=== PATIENT | male | born 1945 | race Caucasian/White ===

== ENCOUNTER 2021-04-10 12:32 | Day surgery (SDC) | payer OTHER, SELFPAY ==
[2021-03-26 16:17] VITALS: BMI 23.1
--- NOTE | 2021-04-02 14:39 | NURSING ---
pt states he will get COVID test completed on 04/07/21 or 04/08/21 at facility other than [facility] and will fax results to PAT #2 by 1200 noon on 04/09/21. Fax number given [phone].
--- NOTE | 2021-04-02 14:47 | NURSING ---
pt instructed to notify Dr Herrera's office that pt has a cough and runny nose, and to clarify if need to stop aspirin and plavix.
--- NOTE | 2021-04-10 | LES_PTH ---
PATIENT: ADENIKE NAVA [place] [facility] [place][id number] AGE/SX: 75/M ROOM: RE04/10/[address]: Dr. Erik Herrera MD : 1945 BED: DIS: 04/10/2021 SPEC #: [id number] RECD: 04/10/21 14:52 STATUS: JUNE RADHA #: [id number] LADONNA: 04/10/21 00:[address]: Erik Herrera DEPT: SURGICAL PATHOLOGY RECD BY: Za Saleem ENTERED: 04/10/21 15:47 SP TYPE: Lesion OTHR DR: Dr. Abilio Hawk MD Tissues: A - Skin of face, NOS B - Skin of face, NOS C - Skin of face, NOS D - Skin of face, NOS Procedures: Frozen Section (charge) Surgery Specimen Level IV HEADER OPERATION: Excision lesion right holiness with frozen section PRE-OP DIAGNOSIS: 2.2 cm erythematous ulcerated lesion right holiness by hairline; 1.2 cm erythematous lesion left cheek by cheek/lower eyelid junction TISSUE SUBMITTED: A - Erythematous ulcerated lesion right holiness by hairline, FS, B - Erythematous lesion left cheek by cheek/lower eyelid junction, FS, C - Basal cell carcinoma right holiness by hairline, suture at 12 o?clock, D - 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 Ulcerated lesion right holiness by hairline, biopsy: Basal cell carcinoma. B. Erythematous lesion left cheek, shave biopsy: Squamous cell carcinoma in situ. SJ:fabiola 04/10/2021 MICROSCOPIC DIAGNOSIS A. Skin lesion of right holiness, biopsy: Nodular basal cell carcinoma, ulcerated. See comment. B. Skin lesion of left cheek, biopsy: Squamous cell carcinoma in situ. C. Skin lesion of right holiness re-excision: Actinic change and dorene elastosis. Cutaneous ulcer consistent with recent biopsy. Intradermal nevus. No evidence of carcinoma. D. Skin lesion of left cheek, re-excision: Cutaneous ulcer consistent with recent biopsy. Actinic change and focal solar elastosis. No evidence of malignancy. AM:fabiola 04/14/2021 COMMENT A. The lesion is incompletely excised. MICROSCOPIC DESCRIPTION Slides are reviewed. GROSS DESCRIPTION A - Received fresh for frozen section diagnosis labeled with the patient's name is a specimen designated ulcerated lesion right holiness by hairline. The specimen consists of a piece of skin measuring 3 x 1.2 x 0.5 cm. The specimen is inked, serially sectioned and submitted entirely for frozen section diagnosis in two cassettes. / : 04/10/21 B - Received fresh for frozen section diagnosis labeled with the patient's name is a specimen designated erythematous lesion left cheek. The specimen consists of a shave biopsy of pepper-white skin measuring 1.5 x 1 x 0.1 cm. The specimen is inked, serially sectioned and submitted entirely for frozen section diagnosis in one cassette. / : 04/10/21 C - Received in fixative is one container labeled with the patient's name and designated basal cell carcinoma right holiness by hairline. The specimen consists of a round piece of pepper-white skin measuring 3.2 x 3 cm and up to 0.5 cm in thickness. The skin surface shows an area of ulceration consistent with site of specimen A measuring 2.2 x 1.5 cm. The specimen is oriented by a suture at 12 o?clock. The specimen is inked as follows: 12 to 3 o?clock ? black, 3 to 6 o?clock ? blue, 6 to 9 o?clock ? green and 9 to 12 o?clock ? yellow. The specimen is serially sectioned and submitted entirely in three cassettes. / : 04/13/21 D - Received in fixative is one container labeled with the patient's name and designated squamous cell carcinoma in situ left cheek by cheek/lower eyelid. The specimen consists of a piece of pepper-white skin measuring 1.9 x 1.9 cm and 0.2 cm in thickness. The specimen is oriented by a suture at 12 o?clock. The specimen is inked as follows: 12 to 3 o?clock ? black, 3 to 6 o?clock ? blue, 6 to 9 o?clock ? green and 9 to 12 o?clock ? yellow. The specimen shows a focal area of ulceration measuring 1.2 x 1.2 cm. The specimen is serially sectioned and submitted entirely in two cassettes. / GARETT:fabiola 04/13/21 TC:0 CPT: 08827 x4, 76181 x2
--- NOTE | 2021-04-10 07:44 | PCM.HP.BLA ---
History and Physical Date of Admission: 04/10/21 HISTORY OF PRESENT ILLNESS 75 year old man presents for evaluation for TBSE.? He has concerns about an erythematous lesion on his left cheek by the cheek/lower eyelid junction.? There is also an erythematous lesion right gnosticist by hairline that intermittently bleeds.? He denies trauma.? He states he first noticed these lesions growing about 6 months ago.? He denies any recent infection.? He presents today for further evaluation and treatment. PAST MEDICAL HISTORY Cataracts, bilateral Diabetes Former smoker Hearing difficulty Heart disease Heart valve disorder High blood pressure High cholesterol History of pneumonia Neoplasm of skin of left cheek Neoplasm of skin of gnosticist region Prostate disorder Stroke PAST SURGICAL HISTORY Cardiac stent prostate surgery ALLERGIES No Known Allergies MEDICATIONS amlodipine aspirin atenolol clopidogrel glipizide lisinopril lovastatin metformin FAMILY HISTORY Daughter - Cancer Son - Epilepsy SOCIAL HISTORY Smoking Status:? Former smoker alcohol intake:? never substance use type:? does not use REVIEW OF SYSTEMS General - Denies fever, fatigue, and weight loss. Eyes - Has cataracts.? Denies glaucoma. ENT - Denies nasal congestion and sore throat. Endocrine - Denies excessive thirst and urination. ? Has cold intolerance. Skin - Denies skin cancer.? Has enlarging lesions left cheek by the cheek/lower eyelid junction and right gnosticist by hairline. Musculoskeletal - Denies joint pain, joint stiffness, weakness of muscles and joints, back pain, and arthritis. Neuro - Denies headaches. Cardiovascular - Denies chest pain, fatigue, and shortness of breath with exertion. Psych - Denies anxiety and depression. Respiratory - Denies chronic cough and shortness of breath.? Patient is a former smoker. Gastrointestinal - Denies nausea, vomiting, and constipation.? Has diarrhea. Hematologic - Denies abnormal bruising and bleeding. Genitourinary - Denies hematuria.? Has urinary frequency. PHYSICAL EXAMINATION General - Alert and Oriented. HEENT - PERRL. EOMI.? Throat is clear.? On the right gnosticist by hairline is an erythematous lesion.? Overlying tissue is friable.? Easily bleeds.? Has irregular borders.? Raised in configuration.? Lesion is nontender.? Some ulceration seen.? Measures 2.2 cm. On the left cheek by the cheek/lower eyelid junction is an erythematous lesion.? Some scabbing.? Has irregular borders.? Slightly raised in configuration.? No ulceration.? Lesion is nontender.? Measures 1.2 cm.? Neck - Supple and nontender.? No cervical adenopathy. Lungs - Clear to auscultation. Heart - Regular rate and rhythm. Abdomen - Soft and nondistended. Extremities - FROM. No axillary adenopathy.? Radial pulses are palpable. Neuro - CN II-XII grossly intact. Psych - Normal mood and affect. ASSESSMENT 1.? 2.2 cm erythematous ulcerated lesion right gnosticist by hairline,? clinically consistent with a skin carcinoma. 2.? 1.2 cm erythematous lesion left cheek by the cheek/lower eyelid junction, clinically consistent with a basal cell carcinoma. 3.? Former smoker. PLAN Patient has two lesions on his face (left cheek by the cheek/lower eyelid junction, and right gnosticist by hairline) that have increased in size over the last several months. They are clinically consistent with a skin carcinoma.? There is some ulcerated bleeding on the lesion right gnosticist by hairline. Recommend excision of these two lesions and send them to Pathology for analysis to rule out carcinoma.? If carcinoma is present or if there is an actinic pre-cancerous component, then further excision will be done with skin grafting or possible skin flap. Surgery will be done under general anesthesia on an outpatient basis. Patient was informed of the risks and complications of the procedure including alternatives to surgery.? These were discussed with the patient personally.? Patient voices understanding and wishes to proceed. Some of the risks and complications were included in a form from the [employer]. If the frozen section shows actinic pre-cancerous sun damage, the options are surgery or treatment with Aldara which is applied daily at night 5 days per week for 6 weeks.? In the mornings, wipe off the excess.? Patient decided he didn't want to used the cream and would much rather have an actinic pre-cancerous lesion excised in surgery. We discussed the current risks associated with COVID-19. While it is understood that there is a community spread of COVID-19, the risk of rosas COVID-19 while at [facility] ([facility]) is very low; however, the risk cannot be completely mitigated because of the community spread of the disease. We discussed in detail the risk of exposure to and/or potential harm posed by the COVID-19 virus with having a surgery/procedure at this time versus the risk of delaying the surgery/procedure. It is not possible to know either the risk of delaying the surgery or procedure or chance of getting an infection with perfect accuracy, but a joint decision was made to proceed at this time with the scheduled surgery/procedure as indicated on the consent form. Patient was notified that we will need to comply with any screening or testing WC wishes to perform or that surgery may be delayed for any positive results. Discussed with the patient that I was tested for COVID-19 on 05/29/20 which was negative and on 06/12/20 which was negative and on 06/26/20 which was negative and on 07/10/20 which was negative and on 07/24/20 which was negative and on 08/14/20 which was negative and on 09/04/20 which was negative and on 10/09/20 which was negative and on 10/30/20 which was negative and on 11/18/20 which was negative. ? My testing regimen at this time is to be COVID-19 tested every 2 weeks or so.? I received the COVID-19 vaccine (Moderna) on 11/26/20 and the second vaccine dose was received on 12/24/20.? When I was hospitalized on 01/26/21 I was tested for COVID-19 which was negative.? I was also? tested for COVID-19 on 02/10/21 which was negative and on 03/09/21 which was negative. Procedure Criteria Procedure Type:?Elective COVID Risk Discussion: The surgeon/proceduralist and patient have discussed in detail the risk of exposure to and/or potential harm posed by the COVID-19 virus with having a surgery/procedure at this time versus the risk of delaying the surgery/procedure.? It is not possible to know either the risk of delaying the surgery or procedure or chance of getting an infection with perfect accuracy, but a joint decision was made between the patient and the surgeon/proceduralist to proceed at this time with the scheduled surgery/procedure as indicated on the consent form. Addendum Addendum: Surgery Charges CPT - 63940
[2021-04-10] MEDS: Lactated Ringers 1,000 ML 100 ML IV (13:00)
[2021-04-10] MEDS: Lidocaine 1% /Epi 1:100 (20ml) 20 ML Vial (13:28)
[2021-04-10 13:32] VITALS: BP 197/55; PULSE 51; RESP 14; TEMP 36.4; O2SAT 100; BMI 21.4
[2021-04-10 13:40] LABS: Bedside Glucose 96 mg/dL (70-110)
[2021-04-10] MEDS: Mupirocin Ointment 22gm Tube 1 APPLIC (16:21)
[2021-04-10 16:40] VITALS: BP 143/48; BP 197/55; PULSE 51; RESP 16; TEMP 36.1; O2SAT 94
[2021-04-10 16:45] VITALS: BP 143/45; BP 197/55; PULSE 52; RESP 16; O2SAT 97
[2021-04-10 17:00] VITALS: BP 139/52; BP 197/55; PULSE 51; RESP 16; O2SAT 98
--- NOTE | 2021-04-10 17:06 | PCM.OPRPT ---
Report of Operation Date of Procedure: 04/10/21 Pre-Operative Diagnosis: 1. 2.2 cm erythematous ulcerated lesion right anabaptism by hairline, clinically consistent with a skin carcinoma. 2. 1.2 cm erythematous lesion left cheek by the cheek/alejo eyelid junction, clinically consistent with a basal cell carcinoma. 3. Former smoker. Post-Operative Diagnosis: 1. 2.2 cm erythematous ulcerated basal cell carcinoma right anabaptism by hairline. 2. 1.2 cm erythematous squamous cell carcinoma in situ left cheek by the cheek/alejo eyelid junction. 3. Former smoker. Surgery/Procedure Performed:: 1. Excision 2.2 cm erythematous ulcerated basal cell carcinoma right anabaptism by hairline with FTSG reconstruction from right flank (17.64 cm2). 2. Excision 1.2 cm erythematous squamous cell carcinoma in situ left cheek by the cheek/lower eyelid junction with rhomboid transposition skin flap reconstruction cheek (6 cm2) and FTSG reconstruction lower eyelid from right flank (3 cm2). Description of Surgical Findings:: Frozen section erythematous ulcerated basal cell carcinoma right anabaptism by hairline - basal cell carcinoma. Frozen section erythematous squamous cell carcinoma in situ left cheek by the cheek/lower eyelid junction. Size of skin graft right anabaptism by hairline - 4.2 x 4.2 cm. Size of skin graft left lower eyelid - 2 x 1.5 cm. Surgeon: Erik Herrera clinical resource director: Jaspreet Sandhu Type of Anesthesia: General Specimen's removed: 1. Erythematous ulcerated basal cell carcinoma right anabaptism by hairline to Pathology as a frozen section. 2. Erythematous squamous cell carcinoma in situ left cheek by the cheek/lower eyelid junction to Pathology as a frozen section. 3. Erythematous ulcerated basal cell carcinoma right anabaptism by hairline to Pathology. 4. Erythematous squamous cell carcinoma in situ left cheek by the cheek/lower eyelid junction to Pathology. Drains: None. Estimated Blood Loss (mL): 25. Description of Procedure: Patient was taken to OR in supine position and was placed under general anesthesia. The face and right flank areas were prepped and draped in the usual fashion. SCD's were placed for DVT prophylaxis. Perioperative antibiotics were given intravenously. Using xylocaine with epinephrine, the lesions right anabaptism by hairline and left cheek by the cheek/lower eyelid junction and donor area right flank were infiltrated. After waiting 5 minutes for the anesthetic to take effect, I proceeded with intradermal excision of these two lesions with a size 15 scalpel and sent them to Pathology as a frozen section for analysis to rule out carcinoma. Frozen section showed the right anabaptism by hairline lesion was a basal cell carcinoma and the left cheek by the cheek/lower eyelid junction lesion was a squamous cell carcinoma in situ. The right anabaptism by hairline basal cell carcinoma was excised with a 1 cm margin in all directions into the subcutaneous tissue. A suture was marked at the 12 oclock position for pathology orientation. The lesion was sent to Pathology for analysis to evaluate for carcinoma at the margins. The size of the defect to be skin grafted is 4.2 x 4.2 cm or 17.64 cm2. The left cheek by the cheek/lower eyelid junction squamous cell carcinoma in situ was excised with a 4 mm margin in all directions into the subcutaneous tissue. The superior aspect of the wound extended into the lower eyelid. Will try and close this defect with a rhomboid flap. If there is too much tension on the lower eyelid, then the superior aspect of the wound would be skin grafted. Hemostasis in both of these wounds obtained with electrocautery. Using a separate 10 scalpel, I excised the donor site ellipse in the right flank into the subcutaneous tissue. The subcutaneous tissue was removed from the undersurface of the dermis thus fashioning a full thickness skin graft. The skin graft was placed in saline. Hemostasis was obtained with electrocautery. The donor incision was closed in a layered fashion with 3-0 Monocryl interrupted sutures for the deep dermis and subcutaneous tissue. The skin was approximated with 3-0 V lock unidirectional barbed running subcuticular suture. This was followed by Histoacryl skin tissue adhesive. I then placed the skin graft to the right anabaptism by hairline wound and secured it to the skin edges with 5-0 Chromic simple interrupted sutures. 5-0 Chromic sutures were also used for central quilting stabilization. For the left cheek by the cheek/lower eyelid junction wound, I designed a rhomboid flap inferiorly. Incisions were made and the flap was elevated on a subcutaneous pedicle and transposed into the defect. When I placed a suture at the superior edge of the wound, there was too much tension on the lower eyelid. So the suture was removed. So the rhomboid flap will reconstruct the cheek portion of the wound and the FTSG will reconstruct the lower eyelid portion of the wound. Hemostasis was obtained with electrocautery. I transposed the rhomboid flap into the cheek portion of the defect and the incisions were closed in a layered fashion with 5-0 Monocryl interrupted sutures for the deep dermis and subcutaneous tissue. The skin was approximated with 6-0 Prolene simple interrupted sutures. A FTSG was placed on the superior wound and secured to the skin edges with 5-0 Chromic simple interrupted sutures. 5-0 Chromic sutures were also placed for central quilting stabilization. Antibiotic ointment was applied to both skin grafts followed by Xeroform gauze and cotton balls soaked in saline. It was secured to the skin with 4-0 Nylon tie over stent suture dressings. A Kerlix gauze was applied to the donor incision right flank. Patient tolerated the procedure well and was sent to PACU in satisfactory condition. Patient will be sent home on antibiotics and pain medication. He will keep his head elevated during the initial postoperative period. Patient will followup in a week for a wound check and for discussion of the pathology report and for removal of the skin graft dressings and for removal of the Prolene and Nylon sutures. Grafts/Implants Used: None. Complications None. Admit VTE Documentation VTE Present on Admission: No VTE Mechan Device Prophylaxis: SCD's VTE Pharm Prophylaxis ordered?: No Addendum Addendum: Surgery Charges CPT - 98970 ICD-10 - C44.319, Z87.891, D04.39 36979 C44.319, Z87.891, D04.39 43422 D04.39, Z87.891, C44.319 24930 D04.39, Z87.891, C44.319 75560 D04.39, Z87.891, C44.319
--- NOTE | 2021-04-10 17:08 | PCM.DC ---
Discharge Instructions Diet Discharge Diet: No restrictions Activity Discharge Activity: May not drive while taking narcotic pain medications., May Shower (in two days from the neck down. May wash face gently in the sink.), May Take a Tub Bath (in two days) and - (keep head elevated. no heavy lifting.) May shower in (days): 2 (from the neck down and wash face gently in the sink.) May resume sexual activity in: 10-14 days Weight Bearing Status: Weight bearing as tolerated Lifting Restrictions: 20 lbs. Keep extremity elevated above heart level: - (elevate head.) Dressing / Incision Call your doctor if your incision/area has: Continuous Slow Oozing, Sudden Increased Bleeding, Increased Pain/ Swelling, Increased Redness, Foul Smelling Discharge and Swelling at the incision site Call your doctor if you observe: Fever of 101 or Higher, Coldness, Increased Pain, Chest pain, Calf discomfort and Uncontrolled pain Change Dressing in: leave in place till F/U (the skin graft operative dressings on the face will be changed in the office.) Remove Dressing in: 2 days (right flank only.) Cleanse incision/area with: - (may shower or tub bathe in two days. May get the right flank dressing wet when bathing in two days. May wash the face gently in the sink. Minimize getting the facial skin graft dressings wet.) Follow Up Care Please Follow Up With: Erik Herrera MD When: tuesday04/15/21. Call [phone] for appt. Test Results: Test results from this visit will be discussed in further detail at your follow-up appointment, if applicable. Discharge Plan Admission Attending Provider: Erik Herrera Primary Care Provider: Abilio Hawk Discharge Orders/Prescriptions Prescriptions: No Action metformin 500 mg tablet 1,000 mg PO BID RF: 0 glipizide 5 mg tablet 5 mg PO BID RF: 0 clopidogrel [Plavix] 75 mg tablet 75 mg PO DAILY RF: 0 amlodipine [Norvasc] 10 mg tablet 10 mg PO DAILY RF: 0 atenolol 100 mg tablet 100 mg PO DAILY RF: 0 lisinopril 40 mg tablet 40 mg PO 1700 RF: 0 lovastatin 20 mg tablet 20 mg PO QHS RF: 0 aspirin [Adult Aspirin Regimen] 81 mg tablet,delayed release (DR/EC) 81 mg PO DAILY RF: 0 clindamycin HCl [Cleocin HCl] 300 mg capsule 300 mg PO TID Qty: 18 RF: 0 oxycodone-acetaminophen [Percocet] 5-325 mg tablet 1 tab PO TID PRN (Reason: pain (scale score 7-10)) 5 Days Qty: 15 RF: 0 clindamycin HCl 300 mg capsule 300 mg PO TID 6 Days Qty: 18 RF: 0 oxycodone-acetaminophen [Percocet] 5-325 mg tablet 1 tab PO TID PRN (Reason: pain (scale score 7-10)) 5 Days Qty: 15 RF: 0 Referrals / Follow Up: Abilio Hawk MD [Primary Care Provider] -
[2021-04-10 17:18] VITALS: BP 148/51; BP 197/55; PULSE 51; RESP 16; TEMP 36.8; O2SAT 96
[2021-04-10 17:50] VITALS: BP 197/55
== END 2021-04-10 18:10 ==
LOC: SDC 12:39 → AC 12:40
PROVIDERS: PCP Family Medicine; Referring Provider Surgery; Visit Provider Surgery
PROC: (CPT 11642; principal; 2021-04-10 13:55)
DX: C44.319 Basal cell carcinoma of skin of other parts of face (principal); D04.39 Carcinoma in situ of skin of other parts of face; E78.00 Pure hypercholesterolemia, unspecified; E11.36 Type 2 diabetes mellitus with diabetic cataract; I10 Essential (primary) hypertension; I51.9 Heart disease, unspecified; Z79.899 Other long term (current) drug therapy; Z79.84 Long term (current) use of oral hypoglycemic drugs; Z87.891 Personal history of nicotine dependence; Z79.02 Long term (current) use of antithrombotics/antiplatelets; Z79.82 Long term (current) use of aspirin; H91.93 Unspecified hearing loss, bilateral
CPT/HCPCS: 00300; 11642; 11646; 14040; 15240; 15260; 82962; 88305; 88331; J7120; J2405

== ENCOUNTER → 2022-05-24 | Outpatient (CLI) | payer OTHER, SELFPAY ==
--- NOTE | 2022-05-24 | IMM_PTH ---
PATIENT: ADENIKE NAVA LOC: [facility] U#:[id number] AGE/SX: 76/M ROOM: RE05/24/[address]: Dr. Jaciel Miller MD : 1945 BED: DIS: 05/24/2022 SPEC #: [id number] RECD: 05/26/22 12:52 STATUS: JUNE REBea #: [id number] LADONNA: 05/24/22 00:[address]: Jaciel Miller DEPT: IMMUNOHISTOCHEMISTRY RECD BY: Za Saleem ENTERED: 05/26/22 12:53 SP TYPE: IMMUNO OTHR DR: Dr. Abilio Hawk MD Tissues: Skin of face, NOS Procedures: Vimentin (add) Pankeratin (initial) MELAN-A (add) S-100 (add) PHYSICIAN & INSTITUTION [place] [address] SPECIMEN INFORMATION: Tissue Source: Right cheek lesion Clinical Info: Skin cancer right cheek Specimen Number: [id number] #2 CPT code: 95456, 37675 x4 METHODOLOGY: Deparaffinized sections of prefer/formalin-fixed tissue or PAP/DQ stained slides are incubated with monoclonal/polyclonal antibodies/oligonucleotide probes. Localization is made via biotin free immunoperoxidase method. Appropriate controls are performed and reacted as expected. Results on target cell population are indicated in the following table: RESULTS: ANTIBODY / CLONE RESULT Block 2 AE1-3 (AE1/AE3/PCK26) negative Vimentin (V9) positive Melan A (A103) positive S-100 (4C4.9) positive P53 (DO-7) positive These tests were developed and their performance characteristics determined by [facility]. They may not have been cleared or approved by the U.S. Food and Drug Administration. The FDA has determined that such clearance or approval is not necessary. The above immunohistochemical/dualISH markers are ordered and reviewed by the Pathologist. INTERPRETATION: Right cheek lesion, excisional biopsy: Invasive Malignant melanoma. Melanoma insitu. Case has been reviewed in consultation with Dr. Fofana who concurs with the above diagnosis. IDC:GARETT SALVADOR/tanna 06/15/22
--- NOTE | 2022-05-24 13:45 | LES_PTH ---
PATIENT: ADENIKE NAVA [facility] U#:[id number] AGE/SX: 76/M ROOM: RE05/24/[address]: Dr. Jaciel Miller MD : 1945 BED: DIS: 05/24/2022 SPEC #: [id number] RECD: 05/24/22 15:17 STATUS: JUNE GARCIA #: [id number] LADONNA: 05/24/22 13:[address]: Jaciel Miller DEPT: SURGICAL PATHOLOGY RECD BY: Noman Quiroz ENTERED: 05/25/22 07:26 SP TYPE: Lesion OTHR DR: Dr. Abilio Hawk MD Tissues: Skin of face, NOS Procedures: Surgery Specimen Level IV HEADER OPERATION: Excision right cheek lesion PRE-OP DIAGNOSIS: Skin cancer right cheek TISSUE SUBMITTED: Right cheek lesion, suture dietrich lateral aspect MICROSCOPIC DIAGNOSIS Skin lesion of right cheek, excisional biopsy: Invasive malignant melanoma, excised. Melanoma insitu involving margins. Solar elastosis and focal actinic change. See comment. AM:fabiola 06/15/2022 COMMENT The invasive melanoma appears to have been completely excised in the planes examined (5.0mm for peripheral margin and 5.0mm for deep margin. The lesion is a Locust level IV and has a Breslow thickness of 1.92mm. There is no evidence of perineural or vascular invasion. The peripheral margins are involved by melanoma insitu at medial, inferior and superior margins. Case is seen in consultation with Dr. Allison of [employer]. The complete report is in EMR. Immunohistochemistry ([id number]) supports the above diagnosis. Reference is made to the patient's previous skin lesion biopsies ([id number]) in which basal cell carcinoma and squamous cell carcinoma were identified. Case has been reviewed in consultation with Dr. Fofana who concurs with the above diagnosis. IDC:SJ MICROSCOPIC DESCRIPTION Slides are reviewed. GROSS DESCRIPTION Received in fixative is one container labeled with the patient's name and designated right cheek lesion. The specimen consists of a pepper-white skin ellipse measuring 3.5 x 1.6 cm and up to 0.5 cm in thickness. The specimen is oriented by a suture marking lateral margin which represents the tip of the skin ellipse. The specimen is inked as follows: lateral tip ? yellow, medial tip ? green, superior margin ? black and inferior margin ? blue. The specimen is inked, serially sectioned and submitted entirely in three cassettes. Cassette 1 contains the medial and lateral tips. / SJ:fabiola 05/25/2022 TC:0 CPT: 80643
== END | disposition home or self-care (01) ==
LOC: LABSPEC 15:20
PROVIDERS: PCP Family Medicine; Visit Provider Surgery
DX: C44.309 Unspecified malignant neoplasm of skin of other parts of face (principal)
CPT/HCPCS: 88305; 88341; 88342